=== PATIENT | female | born 1975 | race Two or more races ===

== ENCOUNTER 2022-08-26 20:21 | Emergency (ER) | payer MEDICAID, OTHER ==
[~2022-08-26] VITALS: Ht 157.5 cm; Wt 87.2 kg
[2022-08-26 20:59] LABS: Basophils # (auto) 0 10 ^3/uL (0-0.2); Basophils % (auto) 0.3 % (0.0-2.0); Eosinophils # (auto) 0 10 ^3/uL (0-0.8); Hemoglobin 8.5 g/dL (12.2-16.2); Mean Corpuscular Hemoglobin 19.8 pg (28.0-32.0); Monocytes # (auto) 0.7 10 ^3/uL (0-1.3); Neutrophils # (auto) 6.4 10 ^3/uL (1.6-8.6); Nucleated Red Blood Cells % 0.1 %
[2022-08-26 21:01] LABS: Eosinophils % (auto) 0.5 % (0.0-7.0); Hematocrit 28.3 % (36.0-46.0); Lymphocytes # (auto) 1.5 10 ^3/uL (0.4-5.4); Mean Corpuscular Hgb Conc. 30.1 g/dL (32.0-36.0); Mean Corpuscular Volume 65.8 fL (80.0-100.0); Monocytes % (auto) 7.8 % (0.0-12.0); Neutrophils % (auto) 74.4 % (37.0-80.0); White Blood Cell 8.7 10^3/uL (4.4-10.8)
[2022-08-26 21:14] LABS: INR 1.03 (0.9-1.15); Partial Thromboplastin Time 22.5 sec (24.6-33.4)
[2022-08-26 21:15] LABS: Albumin 3.3 g/dL (3.4-5.0); BUN/Creatinine Ratio 8.8; Calcium 8.9 mg/dL (8.5-10.1); Magnesium 2.1 mg/dL (1.6-2.6)
[2022-08-26 21:18] LABS: Bilirubin, Total 0.5 mg/dL (0.2-1.0)
[2022-08-26 21:44] LABS: Red Cell Distribution Width 22.1 % (11.8-14.3)
[2022-08-26] MEDS ORDERED: DexAMETHasone 4 MG TAB PO ONE (21:45)
[2022-08-26] MEDS ORDERED: ALBUTEROL SULF 2.5 MG/0.5ML(0.5%) NEB SOLN NEB ONE (21:45)
[2022-08-26] MEDS ORDERED: BUDESONIDE (INHALATION) 0.5 MG/2 ML NEB NEB ONE (21:45)
[2022-08-26] MEDS ORDERED: ASPirin 325 MG TAB PO ONE (21:45)
[2022-08-26] MEDS ORDERED: ALBUTEROL MEDNEB 2.5 mg/3ml NEB ONE (21:53)
[2022-08-26] MEDS ORDERED: POTASSIUM CHL 20 Meq TABLET PO ONE (22:00)
[2022-08-27] MEDS ORDERED: IOHEXOL 350 MG/ML 100ML IJ ONE ×2 (02:37→04:04)
[2022-08-27 06:20] VITALS: BP 115/73
== END 2022-08-27 06:26 | disposition home or self-care (01) ==
LOC: ER 20:29
DX: R07.89 Other chest pain (principal); R06.02 Shortness of breath; I10 Essential (primary) hypertension; F17.210 Nicotine dependence, cigarettes, uncomplicated; Z90.49 Acquired absence of other specified parts of digestive tract
CPT/HCPCS: 36415; 71045; 71275; 80053; 83735; 83880; 84484; 85025; 85379; 85610; 85730; 93005; 94640; 99285; J8540; Q9967

== ENCOUNTER 2025-05-17 15:16 | Inpatient (IN) | payer BC, OTHER ==
[~2025-05-17] VITALS: Ht 165.1 cm; Wt 93.3 kg
[2025-05-17 15:30] VITALS: PULSE 58; RESP 23; O2SAT 100
[2025-05-17] MEDS: LORazepam 2MG/ML-1ML VIAL ONE (15:35)
--- NOTE | 2025-05-17 15:52 | ED.PDOC ---
History of Present Illness HPI Comments This is a 49-year-old female who comes in with chief complaint of possible seizures today. The patient was at work when she had three seizures at work. They were described as tonic-clonic in nature and lasted less than 1 minute each. 911 was called and when the paramedics arrived, the patient had another seizure lasting approximately 1 minute. That is seizure was also tonic-clonic in nature. The patient takes Keppra 3 times a day and states that her last dose of Keppra was at approximately 12:30 p.m. today. Upon arrival to the emergency department's, the patient had another seizure which lasted less than 1 minute. The patient is somewhat altered but now able to somewhat answer questions. The patient states that she does have a history of seizures. Time Seen by MD: 15:39 Primary Care Provider: SUNI Reviewed Notes: Nurses Notes, Velocity Shooter Notes, Medications Allergies: Coded Allergies: NO KNOWN ALLERGIES (Unverified , 11/12/12) Information Source: Emergency Med Personnel Mode of Arrival: EMS Severity: Moderate Timing: Minutes Duration: Intermittent Prehospital treatment: 12 Lead EKG, Aerodynamicist, IVF Associated signs and symptoms Tonic-clonic seizure activity Past Medical History PAST MEDICAL HISTORY: HTN, Seizures, TIA Past Medical History (Other): SLE Surgical History: BTL, Cholecystectomy Surgical History (Other): Right knee surgery STORES ASSISTANT History: No Pertinent STORES ASSISTANT History Family History Family History: Reviewed,noncontributory to illness Social History Smoker: Cigarettes, Less Than 1 Pack/Day Alcohol: Heavy Drugs: Marijuana Lives In: Home Constitutional: denies: chills, diaphoresis, fatigue, fever, malaise, sweats, weakness, others EENTM: denies: blurred vision, double vision, ear bleeding, ear discharge, ear drainage, ear pain, ear ringing, eye pain, eye redness, hearing loss, mouth pain, mouth swelling, nasal discharge, nose bleeding, nose congestion, nose pain, photophobia, tearing, throat pain, throat swelling, voice changes, others Respiratory: denies: cough, hemoptysis, orthopnea, SOB at rest, shortness of breath, SOB with excertion, stridor, wheezing, others Cardiovascular: denies: chest pain, dizzy spells, diaphoresis, Dyspnea on exertion, edema, irregular heart beat, left arm pain, lightheadedness, palpi tations, PND, syncope, others Gastrointestinal: denies: abdomen distended, abdominal pain, blood streaked bowels, constipated, diarrhea, dysphagia, difficulty swallowing, hematemesis, melena, nausea, poor appetite, poor fluid intake, rectal bleeding, rectal pain, vomiting, others Genitourinary: denies: abnormal vagina bleeding, burning, dyspareunia, dysuria, flank pain, frequency, hematuria, incontinence, pain, , vagina discharge, urgency, others Neurological: reports: seizure; denies: dizziness, fainting, headache, left sided numbness, left sided weakness, numbness, paresthesia, pre-existing deficit, right sided numbness, right sided weakness, speech problems, tingling, tremors, weakness, others Musculoskeletal: denies: back pain, gout, joint pain, joint swelling, muscle pain, muscle stiffness, neck pain, others Integumetry: denies: bruises, change in color, change in hair/nails, dryness, laceration, lesions, lumps, rash, wounds, others Allergic/Immunocompromised: denies: Difficulty Healing, Frequent Infections, Hives, Itching, others Hematologic/Lymphatic: denies: anemia, blood clots, easy bleeding, easy bruising, swollen glands, others Endocrine: denies: excessive hunger, excessive sweating, excessive thirst, excessive urination, flushing, intolerance to cold, intolerance to heat, unexplained weight gain, unexplained weight loss, others Psychiatric: denies: anxiety, bipolar disorder, depression, hopeless, panic disorder, schizophrenia, sleepless, suicidal, others Physical Exam General Appearance: Moderate Distress HEENT: Normal ENT Inspection, Pharynx Normal, TMs Normal Neck: Full Range of Motion, Non-Tender, Normal, Normal Inspection Respiratory: Chest Non-Tender, Lungs Clear, No Accessory Muscle Use, No Respiratory Distress, Normal Breath Sounds Cardiovascular: No Edema, No JVD, No Murmur, No Gallop, Normal Peripheral Pulses, Regular Rate/Rhythm Breast Exam: Deferred Gastrointestinal: No Organomegaly, Non Tender, No Pulsatile Mass, Normal Bowel Sounds, Soft Genitalia: Deferred Pelvic: Deferred Rectal: Deferred Extremities: No calf tenderness, Normal capillary refill, Normal inspection, Normal range of motion, Non-tender, No pedal edema Musculoskeletal : Apperance: Normal Neurologic: phytochemistry professor II-XII nml as Tested, Motor Weakness, No Sensory Deficits, Other (Altered mental status because the patient is postictal at this time) Cerebellar Function: Normal Reflexes: Normal Skin: Dry, Normal Color, Warm Lymphatic: No Adenopathy Was a procedure done? Was a procedure done?: No Differential Dx Considerations may include: Status epilepticus, generalized weakness, electrolyte imbalance, UTI X-Ray, Labs, Meds, VS Vital Signs Date Time Temp Pulse Resp B/P (MAP) Pulse Ox O2 Delivery O2 Flow Rate FiO2 05/17/25 15:21 99.4 76 20 143/82 100 99.4 Lab Test 05/17/25 16:12 Range/Units White Blood Count 4.5 4.4-10.8 10^3/uL Red Blood Count 5.22 H 4.0-5.20 10^6/uL Hemoglobin 12.6 12.2-16.2 g/dL Hematocrit 39.6 36.0-46.0 % Mean Corpuscular Volume 75.8 L 80.0-100.0 fL Mean Corpuscular Hemoglobin 24.1 L 28.0-32.0 pg Mean Corpuscular Hemoglobin Concent 31.9 L 32.0-36.0 g/dL Red Cell Distribution Width 22.1 H 11.8-14.3 % Platelet Count 210 140-450 10^3/uL Mean Platelet Volume 8.5 6.9-10.8 fL Neutrophils (%) (Auto) 67.0 37.0-80.0 % Lymphocytes (%) (Auto) 24.2 10.0-50.0 % Monocytes (%) (Auto) 6.4 0.0-12.0 % Eosinophils (%) (Auto) 1.6 0.0-7.0 % Basophils (%) (Auto) 0.8 0.0-2.0 % Neutrophils # (Auto) 3.0 1.6-8.6 10 ^3/uL Lymphocytes # (Auto) 1.1 0.4-5.4 10 ^3/uL Monocytes # (Auto) 0.3 0-1.3 10 ^3/uL Eosinophils # (Auto) 0.1 0-0.8 10 ^3/uL Basophils # (Auto) 0 0-0.2 10 ^3/uL Nucleated Red Blood Cells 0.1 % Sodium Level 145 136-145 mmol/L Potassium Level 3.5 3.5-5.1 mmol/L Chloride Level 108 H 98-107 mmol/L Carbon Dioxide Level 25 20-31 mmol/L Anion Gap 12 5-15 Blood Urea Nitrogen 9 9-23 mg/dL Creatinine 0.93 0.550-1.02 mg/dL Glomerular Filtration Rate Calc 75 >90 mL/min BUN/Creatinine Ratio 9.7 L 10.0-20.0 Serum Glucose 78 74-106 mg/dL Calcium Level 9.2 8.7-10.4 mg/dL Plasma/Serum Blood Alcohol < 3.0 <10 mg/dL Current Medications Medications (Trade) Dose Ordered Sig/Reggie Route Start Time Stop Time Status Last Admin Levetiracetam 100 ml @ 400 mls/hr ONCE ONCE IV 05/17/25 15:45 05/17/25 15:59 DC 05/17/25 16:03 IV Hep-Lock was established. The patient was given Ativan 2 mg IV push because of the seizure activity We did order Keppra 1000 mg IV piggyback for this patient The patient had another seizure here in the emergency department's. The patient is being admitted to the hospitalist. Seizure precautions were placed on this patient The alcohol level is negative The patient's CBC and chemistry panel are within normal limits The patient is being admitted Images Reviewed?: Images reviewed and evaluated by me Time of 1ST Reevaluation: 15:51 Reevaluation 1ST: Unchanged Patient Education/Counseling: Diagnosis, Treatment, Prognosis Family Education/Counseling: No Family Present SEPSIS Sepsis Screen Physician Orders Pulse Oximetry (05/17/25 15:39) Blood Pressure (05/17/25 15:39) Drug Screen (05/17/25 15:39) Heplock Iv (05/17/25 15:39) Seizure Precautions (05/17/25 15:39) Aerodynamicist (05/17/25 15:39) Electrocardigram (05/17/25 15:39) Vital Signs Date Time Temp Pulse Resp B/P (MAP) Pulse Ox O2 Delivery O2 Flow Rate FiO2 05/17/25 15:21 99.4 76 20 143/82 100 99.4 Laboratory Tests Test 05/17/25 16:12 White Blood Count 4.5 10^3/uL (4.4-10.8) Medications Medications Dose Ordered Sig/Reggie Route Start Time Stop Time Status Last Admin Dose Admin Levetiracetam 100 ml @ 400 mls/hr ONCE ONCE IV 05/17/25 15:45 05/17/25 15:59 DC 05/17/25 16:03 Departure 1 Departure Time of Disposition: 18:48 Impression: Primary Impression: Status epilepticus Disposition: ADMITTED INPATIENT Admit to: Tele Condition: Fair Critical Care Note Critical Care Time?: Yes (45 min-critical care time only) Stability Stability form required: Yes Unstable for transfer: Telemetry monitoring (Telemetry monitoring required), ED Physician Assesment (Clinical assesment) Heart Score Heart Score: Heart Score Response (Comments) Value History N/A 0 EKG N/A 0 Age N/A 0 Risk Factors N/A 0 Troponin N/A 0 Total 0 DYLAN MAYFIELD MD May 17, 2025 15:52
[2025-05-17] MEDS: levETIRAcetam 1000 mg/100ml 100 ML IV ONE (16:03)
[2025-05-17 16:22] LABS: Hemoglobin 12.6 g/dL (12.2-16.2); Mean Corpuscular Hemoglobin 24.1 pg (28.0-32.0)
[2025-05-17 16:25] LABS: Hematocrit 39.6 % (36.0-46.0); Mean Corpuscular Volume 75.8 fL (80.0-100.0); Nucleated Red Blood Cells % 0.1 %
[2025-05-17 16:30] LABS: Sodium 145 mmol/L (136-145)
[2025-05-17 16:31] LABS: Anion Gap 12 (5-15); Carbon Dioxide 25 mmol/L (20-31)
[2025-05-17 16:32] LABS: Calcium 9.2 mg/dL (8.7-10.4)
[2025-05-17 16:34] LABS: Chloride 108 mmol/L (98-107); Potassium 3.5 mmol/L (3.5-5.1)
[2025-05-17 16:37] LABS: BUN/Creatinine Ratio 9.7 (10.0-20.0); Glucose 78 mg/dL (74-106)
[2025-05-17 16:39] LABS: Blood Urea Nitrogen 9 mg/dL (9-23)
[2025-05-17] MEDS ORDERED: ONDANSETRON HCL 4 MG/2 ML VIAL IV PRN (20:30)
--- NOTE | 2025-05-17 20:46 | DVH ---
EXAM: CT HEAD WITHOUT CONTRAST INDICATION: Seizures TECHNIQUE: CT of the head without intravenous contrast. Radiation Dose : 1. Head: CT Dose: CTDI volume is 58.81 mGy. Dose-length product is 1.71 mGy*cm The dose indicators for CT are the volume Computed Tomography (CT) Dose Index (CTDIvol) and the Dose Length Product (DLP), and are measured in units of mGy and mGy-cm, respectively. These indicators are not patient dose, but values generated from the CT scanner acquisition factors. The report includes radiation exposure data for exposures received during this examination. COMPARISON: None FINDINGS: The ventricles, cisterns, and sulci appear age-appropriate. There is no evidence for acute territor ial infarct, hemorrhage, or mass effect. A nonspecific calcification is seen within the periphery of the right frontoparietal lobe. There is bilateral basal ganglia calcifications/mineralization. The orbits are normal. The visualized paranasal sinuses and mastoid air cells are clear. The soft t issues and osseous structures appear within normal limits. IMPRESSION: 1. No acute territorial infarct, intracranial hemorrhage, or mass effect. 2. If clinical symptoms persist, MRI may be beneficial in further evaluation. Radiation optimization: All CT scans at this facility use at least one of these dose optimization ty hniques: automated exposure control mA and/or kV adjustment per patient size (includes targeted exam s where dose is matched to clinical indication) or iterative reconstruction.
[2025-05-17] MEDS: levETIRAcetam 500 MG TAB PO SCH (21:32)
[2025-05-17 21:39] VITALS: PULSE 78; RESP 18; O2SAT 97
[2025-05-17] MEDS ORDERED: TEMAZEPAM 15 MG CAP PO PRN (22:00)
[2025-05-17 23:30] VITALS: BP 105/69; PULSE 58; RESP 15
--- NOTE | 2025-05-18 01:45 | DVHHP2 ---
History of Present Illness Reason for Visit: Seizure activity History of Present Illness 49-year-old female presents for evaluation of seizure activity. Patient is alert oriented. She reports having three seizures at work. She describes them as tonic-clonic lasting less than 30 seconds.. She reports her last seizure episode being three weeks ago. She reports being compliant with her antiseizure medications. Denies oral trauma or incontinence. No other acute complaints reported. Past Medical History Seizure, TIA, hypotension, lupus Past Surgical History Cholecystectomy, right knee surgery Family History Noncontributory Smoke: <1 pack per day ALCOHOL: heavy Drugs: Marijuana Lives: with Family Review of Systems Review of Systems Review of systems are currently negative otherwise addressed in HPI. Allergies: Coded Allergies: NO KNOWN ALLERGIES (Unverified , 11/12/12) Medications Current Medications Medications Dose Ordered Sig/Reggie Route Start Time Stop Time Status Last Admin Dose Admin Levetiracetam 500 mg BID PO 05/17/25 22:00 05/17/25 21:32 500 MG Lorazepam 1 mg Q5MINP PRN IV 05/17/25 20:30 Temazepam 15 mg QHSP PRN PO 05/17/25 22:00 Ondansetron HCl 4 mg Q4HP PRN IV 05/17/25 20:30 Acetaminophen 650 mg Q6HP PRN PO 05/17/25 20:30 Exam Vital Signs Vital Signs Date Time Temp Pulse Resp B/P (MAP) Pulse Ox O2 Delivery O2 Flow Rate FiO2 05/17/25 23:30 58 15 105/69 (81) 05/17/25 21:39 97 Nasal Cannula* 2 28 05/17/25 19:56 98.1 98.1 Exam Gen: 49-year-old female in mild distress Skin: Warm, dry, normal color and texture, no rash. HEENT: Normocephalic atraumatic, mucous membranes moist and pink. Neck: Cervical and supraclavicular nodes normal without enlargement, trachea is midline, thyroid gland is normal without masses. Pulmonary: Clear to auscultation and percussion bilaterally. Cardiac: Regular rate and rhythm. No murmur Abdomen: Soft, nontender, nondistended, bowel sounds present all 4 quadrants, no guarding, no rigidity, no organomegaly. Extremities: No cyanosis, clubbing, no edema Neuro: Cranial nerves II through XII grossly intact, normal affect and speech, no focal motor deficits. Labs/Xrays ORDERING PHYSICIAN: ANKIT GARCIA PROCEDURE(s): HWOCT - HEAD WITHOUT CONTRAST REASON: Seizures ORDER NUMBER(s): [id number], ACCESSION NUMBER(s): [id number] EXAM: CT HEAD WITHOUT CONTRAST INDICATION: Seizures TECHNIQUE: CT of the head without intravenous contrast. Radiation Dose : 1. Head: CT Dose: CTDI volume is 58.81 mGy. Dose-length product is 1.71 mGy*cm The dose indicators for CT are the volume Computed Tomography (CT) Dose Index (CTDIvol) and the Dose Length Product (DLP), and are measured in units of mGy and mGy-cm, respectively. These indicators are not patient dose, but values generated from the CT scanner acquisition factors. The report includes radiation exposure data for exposures received during this examination. COMPARISON: None FINDINGS: The ventricles, cisterns, and sulci appear age-appropriate. There is no alexandru dence for acute territorial infarct, hemorrhage, or mass effect. A nonspecific calcification is seen within the periphery of the right frontoparietal lobe. There is bilateral basal ganglia calcifications/mineralization. The orbits are normal. The visualized paranasal sinuses and mastoid air cells are clear. The soft tissues and osseous structures appear within normal limits. IMPRESSION: 1. No acute territorial infarct, intracranial hemorrhage, or mass effect. 2. If clinical symptoms persist, MRI may be beneficial in further evaluation. Radiation optimization: All CT scans at this facility use at least one of these dose optimization techniques: automated exposure control mA and/or kV adjustment per patient size (includes targeted exams where dose is matched to clinical indication) or iterative reconstruction. Labs Test 05/17/25 16:12 Range/Units White Blood Count 4.5 4.4-10.8 10^3/uL Red Blood Count 5.22 H 4.0-5.20 10^6/uL Hemoglobin 12.6 12.2-16.2 g/dL Hematocrit 39.6 36.0-46.0 % Mean Corpuscular Volume 75.8 L 80.0-100.0 fL Mean Corpuscular Hemoglobin 24.1 L 28.0-32.0 pg Mean Corpuscular Hemoglobin Concent 31.9 L 32.0-36.0 g/dL Red Cell Distribution Width 22.1 H 11.8-14.3 % Platelet Count 210 140-450 10^3/uL Mean Platelet Volume 8.5 6.9-10.8 fL Neutrophils (%) (Auto) 67.0 37.0-80.0 % Lymphocytes (%) (Auto) 24.2 10.0-50.0 % Monocytes (%) (Auto) 6.4 0.0-12.0 % Eosinophils (%) (Auto) 1.6 0.0-7.0 % Basophils (%) (Auto) 0.8 0.0-2.0 % Neutrophils # (Auto) 3.0 1.6-8.6 10 ^3/uL Lymphocytes # (Auto) 1.1 0.4-5.4 10 ^3/uL Monocytes # (Auto) 0.3 0-1.3 10 ^3/uL Eosinophils # (Auto) 0.1 0-0.8 10 ^3/uL Basophils # (Auto) 0 0-0.2 10 ^3/uL Nucleated Red Blood Cells 0.1 % Sodium Level 145 136-145 mmol/L Potassium Level 3.5 3.5-5.1 mmol/L Chloride Level 108 H 98-107 mmol/L Carbon Dioxide Level 25 20-31 mmol/L Anion Gap 12 5-15 Blood Urea Nitrogen 9 9-23 mg/dL Creatinine 0.93 0.550-1.02 mg/dL Glomerular Filtration Rate Calc 75 >90 mL/min BUN/Creatinine Ratio 9.7 L 10.0-20.0 Serum Glucose 78 74-106 mg/dL Calcium Level 9.2 8.7-10.4 mg/dL Plasma/Serum Blood Alcohol < 3.0 <10 mg/dL SEPSIS Sepsis Screen Date sepsis recognized/suspect: May 17, 2025 Time Sepsis recognized/suspect: 2140 Recent Procedure: No On Antibiotic Therapy: No Respiratory Rate >20: No Heart Rate >90: No Temp<36 C (96.8 F) or >38.3 C: No SBP <90 or MAP <65 mmHG: No New Acute Mental Status Change: No Is the patient on CPAP, BIPAP,: No Physician Orders Admit (05/17/25 19:53) Head Without Contrast (05/17/25 19:53) Levetiracetam Tablet (Keppra Tablet) (05/17/25 22:00) Regular Diet (05/18/25 Breakfast) * Neurology Consult (05/17/25 20:27) Seizure Precautions In Place (05/17/25 20:27) Lorazepam 2mg/Ml Inj (Ativan Inj) (05/17/25 20:30) Basic Metabolic Panel (05/18/25 04:00) Temazepam (Restoril) (05/17/25 22:00) Ondansetron Hcl (Zofran) (05/17/25 20:30) Condition: Stable (05/17/25 20:27) Acetaminophen Tablet (Tylenol Tablet) (05/17/25 20:30) Bedrest With Bathroom Privileg (05/17/25 20:27) Vital Signs Date Time Temp Pulse Resp B/P (MAP) Pulse Ox O2 Delivery O2 Flow Rate FiO2 05/17/25 23:30 58 15 105/69 (81) 05/17/25 21:39 78 18 97 Nasal Cannula* 2 28 05/17/25 20:00 52 05/17/25 19:56 98.1 70 18 120/78 (92) 97 98.1 Laboratory Tests Test 05/17/25 16:12 White Blood Count 4.5 10^3/uL (4.4-10.8) Medications Medications Dose Ordered Sig/Reggie Route Start Time Stop Time Status Last Admin Dose Admin Levetiracetam 100 ml @ 400 mls/hr ONCE ONCE IV 05/17/25 15:45 05/17/25 15:59 DC 05/17/25 16:03 400 MLS/HR Levetiracetam 500 mg BID PO 05/17/25 22:00 05/17/25 21:32 500 MG Assessment/Plan Assessment/Plan Assessment Breakthrough seizure Hypotension Plan Admit the patient to [facility] to the hospitalist Seizure precautions Nephrology consultation Continue treatment per orders. Plan discussed with: Patient My Orders Orders - ANKIT GARCIA Procedure Category Date Status Time Admit ADMIT 05/17/25 Transmitted 19:[address] 05/17/25 Resulted 19:53 Levetiracetam Tablet PHA 05/17/25 In Process (Keppra Tablet) 22:00 Regular Diet DIET 05/18/25 Transmitted Breakfast * Neurology Consult CONS 05/17/25 Transmitted 20:27 Seizure Precautions DAMON 05/17/[address] 20:27 Lorazepam 2mg/Ml Inj PHA 05/17/25 In Process (Ativan Inj) 20:30 Basic Metabolic Panel LAB 05/18/25 Logged 04:00 Temazepam (Restoril) PHA 05/17/25 In Process 22:00 Ondansetron Hcl PHA 05/17/25 In Process (Zofran) 20:30 Condition: Stable DAMON 05/17/25 In Process 20:27 Acetaminophen Tablet PHA 05/17/25 In Process (Tylenol Tablet) 20:30 Bedrest With Bathroom DAMON 05/17/25 In Process Privileg 20:27 Date of Service: May 17, 2025 Billing Provider: ANKIT GARCIA Common Visit Codes: [id number] INP/OBS CARE (HIGH) ANKIT GARCIA May 18, 2025 01:45
[2025-05-18] MEDS ORDERED: UPAD15TA PO (03:57)
[2025-05-18] MEDS ORDERED: HYDR25TA4 PO (03:57)
[2025-05-18] MEDS ORDERED: LEVE100012 PO (03:57)
[2025-05-18] MEDS ORDERED: LEVO112T4 PO (03:57)
[2025-05-18 04:52] LABS: Sodium 143 mmol/L (136-145)
[2025-05-18 04:53] LABS: Anion Gap 11 (5-15); Calcium 9.2 mg/dL (8.7-10.4); Carbon Dioxide 24 mmol/L (20-31)
[2025-05-18 04:54] LABS: Chloride 108 mmol/L (98-107); Potassium 3.4 mmol/L (3.5-5.1)
[2025-05-18 04:58] LABS: BUN/Creatinine Ratio 13.6 (10.0-20.0); Blood Urea Nitrogen 9 mg/dL (9-23); Glucose 75 mg/dL (74-106)
[2025-05-18 05:00] VITALS: BP 116/76; PULSE 65; RESP 14
[2025-05-18 08:54] VITALS: BP_SYST 106; BP_SYST 130; BP_DIAS 72; PULSE 102; PULSE 56; RESP 18; RESP 20; TEMP 97.9; TEMP 98.4; O2SAT 94; O2SAT 98
[2025-05-18] MEDS: levETIRAcetam 500 MG TAB PO SCH (09:54)
[2025-05-18] MEDS: LORazepam 2MG/ML-1ML VIAL IV PRN (11:16)
[2025-05-18 11:22] VITALS: BP 122/79; PULSE 66; RESP 16; O2SAT 96
[2025-05-18 13:45] LABS: Alanine Aminotransferase 34.0 U/L (7-40); Albumin 4.1 g/dL (3.2-4.8); Alkaline Phosphatase 81.0 U/L (46-116); Bilirubin, Total 0.5 mg/dL (0.2-1.0); Magnesium 2.3 mg/dL (1.6-2.6); Total Protein 6.8 g/dL (5.7-8.2)
[2025-05-18] MEDS: POTASSIUM EFFERVESENT TAB 25 MEQ PO ONE (13:50)
[2025-05-18] MEDS: ACETAMINOPHEN 325 MG TAB PO PRN (13:56)
[2025-05-18 14:08] LABS: Bilirubin, Direct 0.1 mg/dL (<0.3)
--- NOTE | 2025-05-18 15:09 | DVHPN2 ---
Reviewed: H&P Changes from previous H/P or p: No Changes General: Per HPI Objective Vitals Vital Signs Date Time Temp Pulse Resp B/P (MAP) Pulse Ox O2 Delivery O2 Flow Rate FiO2 05/18/25 11:22 66 16 122/79 (93) 96 05/18/25 08:54 98.4 98.4 05/17/25 21:39 Nasal Cannula* 2 28 Exam Gen: 49-year-old female in mild distress Skin: Warm, dry, normal color and texture, no rash. HEENT: Normocephalic atraumatic, mucous membranes moist and pink. Neck: Cervical and supraclavicular nodes normal without enlargement, trachea is midline, thyroid gland is normal without masses. Pulmonary: Clear to auscultation and percussion bilaterally. Cardiac: Regular rate and rhythm. No murmur Abdomen: Soft, nontender, nondistended, bowel sounds present all 4 quadrants, no guarding, no rigidity, no organomegaly. Extremities: No cyanosis, clubbing, no edema Neuro: Cranial nerves II through XII grossly intact, normal affect and speech, left facial deficits from prior stroke (residual deficits) Medications Current Medications Medications Dose Ordered Sig/Reggie Route Start Time Stop Time Status Last Admin Dose Admin Lorazepam 1 mg Q5MINP PRN IV 05/17/25 20:30 05/18/25 11:16 1 MG Ondansetron HCl 4 mg Q4HP PRN IV 05/17/25 20:30 Acetaminophen 650 mg Q6HP PRN PO 05/17/25 20:30 05/18/25 13:56 650 MG Valproate Sodium 250 mg/Sodium Chloride 52.5 ml @ 52.5 mls/hr BID IV 05/18/25 13:30 Levetiracetam 100 ml @ 400 mls/hr BID IV 05/18/25 22:00 Laboratory Results Laboratory Tests 05/17/25 16:12 05/18/25 03:24 Chemistry Test 05/17/25 16:12 05/18/25 03:24 05/18/25 13:06 Calcium Level 9.2 mg/dL (8.7-10.4) 9.2 mg/dL (8.7-10.4) Albumin 4.1 g/dL (3.2-4.8) Magnesium Level 2.3 mg/dL (1.6-2.6) Total Protein 6.8 g/dL (5.7-8.2) LFT Test 05/18/25 13:06 Alanine Aminotransferase (ALT) 34 U/L (7-40) Alkaline Phosphatase 81 U/L (46-116) Aspartate Amino Transferase (AST) 38 U/L (13-40) Direct Bilirubin 0.1 mg/dL (<0.3) Total Bilirubin 0.5 mg/dL (0.2-1.0) Labs and/or images reviewed: Labs reviewed by me, Image(s) reviewed by me Assessment/Plan Assessment/Plan 49-year-old female presents for evaluation of seizure activity. Patient is alert oriented. She reports having three seizures at work. She describes them as tonic-clonic lasting less than 30 seconds.. She reports her last seizure episode being three weeks ago. She reports being compliant with her antiseizure medications. Denies oral trauma or incontinence. No other acute complaints reported. Past Medical History Seizure, TIA, hypotension, lupus 05/18: Patient had 2 episodes of breakthrough seizures today lasting maximum 10 minutes, with complete returned to consciousness and alert. Pulsatile states are not very long. We will convert Keppra and to IV 1000 mg IV b.i.d., add valproate 250 IV b.i.d., pending neurology eval and follow up. For diet keep clear liquid diet only. Aspiration precautions. Diagnosis: Breakthrough seizures History of epilepsy History TIA History CVA (left facial palsy residual) Hypotension, history of Lupus SLE Plan: IV Keppra 1000 mg IV b.i.d. Valproate 250 mg IV b.i.d. Aspiration precautions Prn Ativan 1 mg Q 5 minutes for breakthrough seizures Clear liquid diet Tele Full code Plan discussed with: Patient My Orders Orders - ORTIZ ZAVALA MD Procedure Category Date Status Time Valproate Inj PHA 05/18/25 In Process (Depacon) 13:30 Levetiracetam 1000 PHA 05/18/25 In Process Mg/100ml (Levetiracet 22:00 Date of Service: May 18, 2025 Billing Provider: ORTIZ ZAVALA MD Common Visit Codes: [id number] INP/OBS CARE(HIGH) ORTIZ ZAVALA MD May 18, 2025 15:09
[2025-05-18 15:56] LABS: Urine Amorphous Crystal FEW /hpf (None Seen); Urine Protein, UAD Negative (Negative)
[2025-05-18 16:02] LABS: Amphetamine Screen, Urine Neg (NEGATIVE); Barbiturate Scree,Urine Neg (NEGATIVE); Benzodiazephine Screen, Urine Neg (NEGATIVE); Cannabinoid Screen, Urine Neg (NEGATIVE); Cocaine Screen, Urine Neg (NEGATIVE); Opiate Scree,Urine Neg (NEGATIVE); Phencyclidine Screen, Urine Neg (NEGATIVE)
[2025-05-18] MEDS: VALPROATE INJ 250 MG in SODIUM CHL 0.9% 50 ML IV SCH (17:13)
--- NOTE | 2025-05-18 17:54 | DVHCONRES ---
Date Seen: May 18, 2025 Resident Creating Document: JAKE MCKEON RESIDENT Referring Physician Michel Burris Reason for Consultation seizure History of Present Illness Neurology consultation Ms. 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 Patient mentioned that yesterday around 2-3 p.m. when she was sitting in her office, she had blurriness of vision and headache and the next memory was waking up sitting in the same chair with her co-worker holding hand confused, he did not read recognize her co-worker and place, time till sometime after waking up. As per , he got a call from the co-worker that patient had three episode of seizures and they had to call 911. The coworkers saw jerky movement with drooling of saliva but no tongue biting and no urinary and fecal incontinence. They also mentioned confusion after the episode of seizures to the . On arriving to the ED, patient had two more episodes of seizures. During the hospital stay, today morning patient had two episodes more with 1st episode noted by the around 17 seconds where jerky movement was noted and it resolved spontaneously, her eyes were closed during the seizure. Patient had another episode of seizure noted by the nurse that lasted for around 15 seconds and 1 mg of Ativan was given. As per the nurse, patient had jerky movement and had postictal confusion. As per the patient, her seizures disorder started in 1992, and her related the seizure he witnessed was typical. The seizure was five at the beginning, but from she only had seizure wants 2-3 years. she has been taking her medication every day once in the morning and once post lunch. Before this episode also patient took her medication i.e Keppra 1000 mg b.i.d. She has never had associated oral trauma or incontinence during the seizure attacks Patient received a flu shot on Thursday. She also mentioned that she has tingling and numbness sensation which she attributed to vitamin B12 deficiency for which she was getting monthly shots but for last three weeks she is getting daily shots of vitamin B12 injection. Patient does not see a neurologist and her PCPs Dr. Hyman who manages her epilepsy. Patient denied any recent history of infection, trauma, drug use. Patient attributes stress as a trigger to her seizure episode. 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 Stroke four years ago TIA two years ago SLE Epilepsy Denies history of anxiety and depression Past surgical history No recent surgery Family history No history of seizures or any neurological condition Social history Patient used to smoke heavily but quit few years ago Patient used to drink heavily but quit few years ago Patient used to consume marijuana but quit few years ago Medication history Rinvoq Levothyroxine Leflunomide Keppra Aspirin Family History: FH: rheumatoid arthritis G8 MOTHER Hypertension G8 MOTHER G8 FATHER Psoriasis G8 FATHER Allergies: Coded Allergies: Ceftriaxone (Verified Allergy, Mild, 05/18/25) Home Meds Reported Medications Leflunomide (Arava) 20 Mg Tab, 100 MG PO DAILY, TAB 05/19/25 Hydrochlorothiazide (Hydrochlorothiazide) 25 Mg Tab, PO DAILY for 30 Days, MG 05/18/25 Upadacitinib (Rinvoq) 15 Mg Tab, 15 MG PO DAILY, TAB 05/18/25 Levetiracetam (Keppra) 1,000 Mg Tab, 1 TAB PO BID, #60 TAB 5 Refills 05/18/25 Levothyroxine Sodium (Levothyroxine Sodium) 112 Mcg Tab, 112 MCG PO QAM for 30 Days, MCG 05/18/25 Current Medications Current Medications Medications (Trade) Dose Ordered Sig/Reggie Route PRN Reason Start Time Stop Time Status Last Admin Levetiracetam (Keppra Tablet) 500 mg BID PO 05/17/25 22:00 05/18/25 01:43 DC 05/17/25 21:32 Lorazepam (Ativan Inj) 1 mg Q5MINP PRN IV SEIZURES 05/17/25 20:30 05/18/25 11:16 Temazepam (Restoril) 15 mg QHSP PRN PO FOR INSOMNIA 05/17/25 22:00 05/18/25 13:31 DC Ondansetron HCl (Zofran) 4 mg Q4HP PRN IV NAUSEA / VOMITING 05/17/25 20:30 Acetaminophen (Tylenol Tablet) 650 mg Q6HP PRN PO PAIN SCALE 1-3 OR TEMP>100.4 05/17/25 20:30 05/18/25 13:56 Levetiracetam (Keppra Tablet) 1,000 mg BID PO 05/18/25 10:00 05/18/25 13:31 DC 05/18/25 09:54 Valproate Sodium 250 mg/Sodium Chloride 52.5 ml @ 52.5 mls/hr BID IV 05/18/25 13:30 05/18/25 17:13 Levetiracetam 100 ml @ 400 mls/hr BID IV 05/18/25 22:00 Review of Systems As described in the HPI Vital Signs Vital Signs Date Time Temp Pulse Resp B/P (MAP) Pulse Ox O2 Delivery O2 Flow Rate FiO2 05/18/25 11:22 66 16 122/79 (93) 96 05/18/25 08:54 98.4 98.4 05/17/25 21:39 Nasal Cannula* 2 28 Physical Exam Examination General Appearance: Alert, Oriented X3, Cooperative, No acute distress HEENT: EOMI Respiratory: Clear to auscultation, Normal air movement Cardiovascular: Regular rate, Normal S1, Normal S2 Abdominal: Normal bowel sounds Extremities: No cyanosis, No edema, Normal pulses, No tenderness/swelling Skin: No rashes, No breakdown Neuro: Cranial nerve examination Grossly intact 3-12 Motor examination Upper extremity limbs Normal power, tone Lower extremity limbs Normal power, tone Sensory examination Grossly intact Reflexes Not assess Cognitive examination Grossly intact, patient is alert and oriented times four, serial calculations done Gait Not assessed Speech Normal Cerebellar exam Not assessed Labs/Diagnostic Data Labs Test 05/18/25 15:27 05/18/25 13:06 05/18/25 03:24 05/17/25 16:12 Range/Units Urine Color Colorless Yellow Urine Clarity Turbid H Clear Urine pH 7.0 5.0-9.0 Urine Specific [place] 1.006 1.001-1.035 Urine Protein Negative Negative Urine Ketones Negative Negative Urine Blood Negative Negative /uL Urine Nitrite Negative Negative Urine Bilirubin Negative Negative Urine Urobilinogen Normal Negative mg/dL Urine Leukocyte Esterase 2+ Negative /uL Urine RBC 1 0 - 4 /hpf Urine Microscopic WBC 5 0-5 /HPF Urine Squamous Epithelial Cells Few <5 /hpf Urine Amorphous Crystals Few None Seen /hpf Urine Bacteria Few H None Seen /hpf Urine Mucus Few None Seen Urine Glucose Normal Normal mg/dL Urine Opiates Screen Neg NEGATIVE Urine Fentanyl Screen Neg NEGATIVE Urine Barbiturates Screen Neg NEGATIVE Urine Phencyclidine Screen Neg NEGATIVE Urine Amphetamines Screen Neg NEGATIVE Urine Benzodiazepines Screen Neg NEGATIVE Urine Cocaine Screen Neg NEGATIVE Urine Cannabinoids Screen Neg NEGATIVE Magnesium Level 2.3 1.6-2.6 mg/dL Total Bilirubin 0.5 0.2-1.0 mg/dL Direct Bilirubin 0.1 <0.3 mg/dL Aspartate Amino Transferase (AST) 38 13-40 U/L Alanine Aminotransferase (ALT) 34 7-40 U/L Alkaline Phosphatase 81 46-116 U/L Total Protein 6.8 5.7-8.2 g/dL Albumin 4.1 3.2-4.8 g/dL Sodium Level 143 136-145 mmol/L Potassium Level 3.4 L 3.5-5.1 mmol/L Chloride Level 108 H 98-107 mmol/L Carbon Dioxide Level 24 20-31 mmol/L Anion Gap 11 5-15 Blood Urea Nitrogen 9 9-23 mg/dL Creatinine 0.66 0.550-1.02 mg/dL Glomerular Filtration Rate Calc 107 >90 mL/min BUN/Creatinine Ratio 13.6 10.0-20.0 Serum Glucose 75 74-106 mg/dL Calcium Level 9.2 8.7-10.4 mg/dL White Blood Count 4.5 4.4-10.8 10^3/uL Red Blood Count 5.22 H 4.0-5.20 10^6/uL Hemoglobin 12.6 12.2-16.2 g/dL Hematocrit 39.6 36.0-46.0 % Mean Corpuscular Volume 75.8 L 80.0-100.0 fL Mean Corpuscular Hemoglobin 24.1 L 28.0-32.0 pg Mean Corpuscular Hemoglobin Concent 31.9 L 32.0-36.0 g/dL Red Cell Distribution Width 22.1 H 11.8-14.3 % Platelet Count 210 140-450 10^3/uL Mean Platelet Volume 8.5 6.9-10.8 fL Neutrophils (%) (Auto) 67.0 37.0-80.0 % Lymphocytes (%) (Auto) 24.2 10.0-50.0 % Monocytes (%) (Auto) 6.4 0.0-12.0 % Eosinophils (%) (Auto) 1.6 0.0-7.0 % Basophils (%) (Auto) 0.8 0.0-2.0 % Neutrophils # (Auto) 3.0 1.6-8.6 10 ^3/uL Lymphocytes # (Auto) 1.1 0.4-5.4 10 ^3/uL Monocytes # (Auto) 0.3 0-1.3 10 ^3/uL Eosinophils # (Auto) 0.1 0-0.8 10 ^3/uL Basophils # (Auto) 0 0-0.2 10 ^3/uL Nucleated Red Blood Cells 0.1 % Plasma/Serum Blood Alcohol < 3.0 <10 mg/dL Assessment Assessment # breakthrough seizures, possible with atypical features, ? stress-induced, ? Autoimmune considering history of lupus and patient is on immunotherapy CT head revealed No acute territorial infarct, intracranial hemorrhage, or mass effect. # lupus, on leflunomide and Rinvoq therapy # history of neurocysticercosis # history of stroke and TIA -on aspirin # History of polysubstance use Plan/Recommendation Plan EEG Seizure precaution Ativan p.r.n. for seizures Consider increase Keppra dose to 1500 mg b.i.d. Corrected electrolytes, potassium 25 mEq effervescent Monitor daily electrolytes Ordered hepatic panel Ordered Keppra levels Stress reduction Practice meditation, deep breathing, or yoga. Seek counseling or support groups as needed Continue aspirin and atorvastatin. Case discussion with Dr Bang. Plan discussed with: Patient, Other JAKE MCKEON RESIDENT May 18, 2025 17:54 DINA BANG MD May 18, 2025 21:17
[2025-05-18 18:39] VITALS: BP 100/65; PULSE 68; RESP 16; TEMP 98.4; O2SAT 93
[2025-05-18 20:00] VITALS: PULSE 85; RESP 18; O2SAT 98
[2025-05-18 21:00] VITALS: BP 95/52; PULSE 76; RESP 18; TEMP 98.1; O2SAT 95
[2025-05-18] MEDS: ATORVASTATIN 20 MG TAB PO SCH (23:29)
[2025-05-18] MEDS: levETIRAcetam 1000 mg/100ml 100 ML IV SCH (23:30)
[2025-05-19] VITALS (7 sets, daily range): BP systolic 104–130; BP diastolic 63–80; PULSE 60–72; RESP 17–18; TEMP 97.2–98.3; O2SAT 95–98
[2025-05-19] MEDS ORDERED: LEFL20TA PO (02:38)
[2025-05-19 05:38] LABS: Hematocrit 37.7 % (36.0-46.0); Hemoglobin 12.2 g/dL (12.2-16.2); Mean Corpuscular Hemoglobin 24.3 pg (28.0-32.0); Mean Corpuscular Volume 75.0 fL (80.0-100.0); Nucleated Red Blood Cells % 0.3 %
[2025-05-19 05:47] LABS: Chloride 108 mmol/L (98-107); Potassium 3.8 mmol/L (3.5-5.1); Sodium 142 mmol/L (136-145)
[2025-05-19 05:48] LABS: Anion Gap 11 (5-15); Calcium 9.3 mg/dL (8.7-10.4); Carbon Dioxide 23 mmol/L (20-31)
[2025-05-19 05:53] LABS: BUN/Creatinine Ratio 12.5 (10.0-20.0); Blood Urea Nitrogen 8 mg/dL (9-23); Glucose 82 mg/dL (74-106)
[2025-05-19] MEDS: VALPROATE INJ 250 MG in SODIUM CHL 0.9% 50 ML IV SCH (09:00)
--- NOTE | 2025-05-19 13:05 | DVHPN2 ---
Reviewed: H&P Changes from previous H/P or p: No Changes General: Per HPI Objective Vitals Vital Signs Date Time Temp Pulse Resp B/P (MAP) Pulse Ox O2 Delivery O2 Flow Rate FiO2 05/19/25 08:41 97.7 60 17 111/80 (90) 98 97.7 05/18/25 20:00 Room Air* 0 21 Intake/Output Intake and Output 05/19/25 07:00 Intake Total 0 ml Balance 0 ml Intake Oral 0 ml # Voids 5 Exam Gen: 49-year-old female in mild distress Skin: Warm, dry, normal color and texture, no rash. HEENT: Normocephalic atraumatic, mucous membranes moist and pink. Neck: Cervical and supraclavicular nodes normal without enlargement, trachea is midline, thyroid gland is normal without masses. Pulmonary: Clear to auscultation and percussion bilaterally. Cardiac: Regular rate and rhythm. No murmur Abdomen: Soft, nontender, nondistended, bowel sounds present all 4 quadrants, no guarding, no rigidity, no organomegaly. Extremities: No cyanosis, clubbing, no edema Neuro: Cranial nerves II through XII grossly intact, normal affect and speech, left facial deficits from prior stroke (residual deficits) Medications Current Medications Medications Dose Ordered Sig/Reggie Route Start Time Stop Time Status Last Admin Dose Admin Lorazepam 1 mg Q5MINP PRN IV 05/17/25 20:30 05/18/25 11:16 1 MG Ondansetron HCl 4 mg Q4HP PRN IV 05/17/25 20:30 Acetaminophen 650 mg Q6HP PRN PO 05/17/25 20:30 05/18/25 13:56 650 MG Aspirin 81 mg DAILY PO 05/19/25 10:00 05/19/25 09:58 81 MG Atorvastatin Calcium 40 mg HS PO 05/18/25 22:00 05/18/25 23:29 40 MG Levetiracetam 100 ml @ 400 mls/hr BID IV 05/19/25 22:00 Laboratory Results Laboratory Tests 05/19/25 04:50 Chemistry Test 05/18/25 13:06 05/19/25 04:50 Albumin 4.1 g/dL (3.2-4.8) Magnesium Level 2.3 mg/dL (1.6-2.6) Total Protein 6.8 g/dL (5.7-8.2) Calcium Level 9.3 mg/dL (8.7-10.4) LFT Test 05/18/25 13:06 Alanine Aminotransferase (ALT) 34 U/L (7-40) Alkaline Phosphatase 81 U/L (46-116) Aspartate Amino Transferase (AST) 38 U/L (13-40) Direct Bilirubin 0.1 mg/dL (<0.3) Total Bilirubin 0.5 mg/dL (0.2-1.0) Urinalysis Test 05/18/25 15:27 Urine Color Colorless (Yellow) Urine Clarity Turbid (Clear) H Urine pH 7.0 (5.0-9.0) Urine Specific [place] 1.006 (1.001-1.035) Urine Protein Negative (Negative) Urine Ketones Negative (Negative) Urine Blood Negative /uL (Negative) Urine Nitrite Negative (Negative) Urine Bilirubin Negative (Negative) Urine Urobilinogen Normal mg/dL (Negative) Urine Leukocyte Esterase 2+ /uL (Negative) Urine RBC 1 /hpf (0 - 4) Urine Microscopic WBC 5 /HPF (0-5) Urine Squamous Epithelial Cells Few /hpf (<5) Urine Amorphous Crystals Few /hpf (None Seen) Urine Bacteria Few /hpf (None Seen) H Urine Mucus Few (None Seen) Urine Glucose Normal mg/dL (Normal) Labs and/or images reviewed: Labs reviewed by me, Image(s) reviewed by me Assessment/Plan Assessment/Plan 49-year-old female presents for evaluation of seizure activity. Patient is alert oriented. She reports having three seizures at work. She describes them as tonic-clonic lasting less than 30 seconds.. She reports her last seizure episode being three weeks ago. She reports being compliant with her antiseizure medications. Denies oral trauma or incontinence. No other acute complaints reported. Past Medical History Seizure, TIA, hypotension, lupus 05/18: Patient had 2 episodes of breakthrough seizures today lasting maximum 10 minutes, with complete returned to consciousness and alert. Pulsatile states are not very long. We will convert Keppra and to IV 1000 mg IV b.i.d., add valproate 250 IV b.i.d., pending neurology eval and follow up. For diet keep clear liquid diet only. Aspiration precautions. 05/19: Patient continues to have seizures, has history of nurses cirrhosis, it was treated. Two seizures this morning, not requiring Ativan. Self resolved. Patient is not postictal A&O x4 pretty much away after the seizure and. Unclear if these are we will seizures. Neurology following. Stopped valproate. Continue Keppra higher dose 1.5 g Keppra IV b.i.d.. Urology following EEG today. We have to keep 1 more day to have 24 hour free of seizures. Diagnosis: Breakthrough seizures History of epilepsy History TIA History CVA (left facial palsy residual) Hypotension, history of Lupus SLE Plan: IV Keppra 1000 mg IV b.i.d. Valproate 250 mg IV b.i.d. Aspiration precautions Prn Ativan 1 mg Q 5 minutes for breakthrough seizures Clear liquid diet medsurg Full code Plan discussed with: Patient My Orders Orders - ORTIZ ZAVALA MD Procedure Category Date Status Time Levetiracetam 1500 PHA 05/19/25 In Process Mg/100ml (Levetiracet 22:00 Date of Service: May 19, 2025 Billing Provider: ORTIZ ZAVALA MD Common Visit Codes: [id number] INP/OBS CARE(HIGH) ORTIZ ZAVALA MD May 19, 2025 13:05
--- NOTE | 2025-05-19 13:53 | DVHPN2 ---
Consult Progress Note Date Seen: May 19, 2025 Subjective Other Systems: History of Present Illness Neurology consultation Ms. 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 Patient mentioned that yesterday around 2-3 p.m. when she was sitting in her office, she had blurriness of vision and headache and the next memory was waking up sitting in the same chair with her co-worker holding hand confused, he did not read recognize her co-worker and place, time till sometime after waking up. As per , he got a call from the co-worker that patient had three episode of seizures and they had to call 911. The coworkers saw jerky movement with drooling of saliva but no tongue biting and no urinary and fecal incontinence. They also mentioned confusion after the episode of seizures to the . On arriving to the ED, patient had two more episodes of seizures. During the hospital stay, today morning patient had two episodes more with 1st episode noted by the around 17 seconds where jerky movement was noted and it resolved spontaneously, her eyes were closed during the seizure. Patient had another episode of seizure noted by the nurse that lasted for around 15 seconds and 1 mg of Ativan was given. As per the nurse, patient had jerky movement and had postictal confusion. As per the patient, her seizures disorder started in 1992, and her related the seizure he witnessed was typical. The seizure was five at the beginning, but from she only had seizure wants 2-3 years. she has been taking her medication every day once in the morning and once post lunch. Before this episode also patient took her medication i.e Keppra 1000 mg b.i.d. She has never had associated oral trauma or incontinence during the seizure attacks Patient received a flu shot on Thursday. She also mentioned that she has tingling and numbness sensation which she attributed to vitamin B12 deficiency for which she was getting monthly shots but for last three weeks she is getting daily shots of vitamin B12 injection. Patient does not see a neurologist and her PCPs Dr. Hyman who manages her epilepsy. Patient denied any recent history of infection, trauma, drug use. Patient attributes stress as a trigger to her seizure episode. 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 Stroke four years ago TIA two years ago SLE Epilepsy Denies history of anxiety and depression Past surgical history No recent surgery Family history No history of seizures or any neurological condition Social history Patient used to smoke heavily but quit few years ago Patient used to drink heavily but quit few years ago Patient used to consume marijuana but quit few years ago Medication history Rinvoq Levothyroxine Leflunomide Keppra Aspirin Interval Events 05/19/25 pt seen and examined at bedside. pt is currently getting EEG. mentioned that she got seizure in the morning and resolved spontaneously. She was not given Ativan. As per the nurse, it looked like a tonic clonic seizure. As per , pt had episode where she first had jerky movements in the hand and got transferred to the whole body. as per pt had closure of her eyes during the episode. pt mentioned weakness and headache but no other complaints. Objective vital signs Vital Sign Date Time Temp Pulse Resp B/P (MAP) Pulse Ox O2 Delivery O2 Flow Rate FiO2 05/19/25 13:00 98.3 61 17 104/65 (78) 98 98.3 05/18/25 20:00 Room Air* 0 21 Total Intake and Output 05/18/25 05/18/25 05/19/25 15:00 23:00 07:00 Intake Total 0 ml Balance 0 ml medications Current Medications Medications Dose Ordered Sig/Reggie Route Start Time Stop Time Status Last Admin Dose Admin Lorazepam 1 mg Q5MINP PRN IV 05/17/25 20:30 05/18/25 11:16 1 MG Ondansetron HCl 4 mg Q4HP PRN IV 05/17/25 20:30 Acetaminophen 650 mg Q6HP PRN PO 05/17/25 20:30 05/18/25 13:56 650 MG Aspirin 81 mg DAILY PO 05/19/25 10:00 05/19/25 09:58 81 MG Atorvastatin Calcium 40 mg HS PO 05/18/25 22:00 05/18/25 23:29 40 MG Levetiracetam 100 ml @ 400 mls/hr BID IV 05/19/25 22:00 Examination: GENERAL:Normal, HEENT:Normal, LUNGS:Normal, CVS:Normal laboratory and microbiology Laboratory Tests 05/19/25 04:50 Test 05/19/25 04:50 Range/Units Serum Glucose 82 74-106 mg/dL Problem List/Assessment/Plan Problem List/Assessment/Plan Assessment # breakthrough seizures vs psychogenic seizures, possible with atypical features (according to her , she had two seizures x2 today, in that he was shaking whole-body, head was shaking from [id number], eyes were closed, for about 45 seconds), ? stress-induced, ? Autoimmune considering history of lupus and patient is on immunotherapy CT head revealed No acute territorial infarct, intracranial hemorrhage, or mass effect. # lupus, on leflunomide and Rinvoq therapy # history of neurocysticercosis # history of stroke and TIA -on aspirin # History of polysubstance use Plan/Recommendation EEG Seizure precaution Ativan p.r.n. for seizures Consider increase Keppra dose to 1500 mg b.i.d and discontinue the valproic acid Monitor daily electrolytes Ordered hepatic panel, WNL Ordered Keppra levels, Pending results Stress reduction Practice meditation, deep breathing, or yoga. Seek counseling or support groups as needed Continue aspirin and atorvastatin. Case discussion with Dr Bang. Plan discussed with: Patient, Other JAKE MCKEON RESIDENT May 19, 2025 13:53 DINA BANG MD May 19, 2025 19:11
[2025-05-19] MEDS: levETIRAcetam 1500 mg/100ml 100 ML IV SCH (21:26)
[2025-05-20 01:00] VITALS: BP 123/82; PULSE 75; RESP 19; TEMP 97.4; O2SAT 93
[2025-05-20 05:00] VITALS: BP 100/58; PULSE 64; RESP 19; TEMP 97.3; O2SAT 96
[2025-05-20 07:23] LABS: Anion Gap 9 (5-15); Carbon Dioxide 27 mmol/L (20-31); Potassium 3.8 mmol/L (3.5-5.1); Sodium 144 mmol/L (136-145)
[2025-05-20 07:24] LABS: Calcium 9.2 mg/dL (8.7-10.4)
[2025-05-20 07:29] LABS: BUN/Creatinine Ratio 10.1 (10.0-20.0); Glucose 78 mg/dL (74-106)
[2025-05-20 07:37] LABS: Blood Urea Nitrogen 8 mg/dL (9-23); Chloride 108 mmol/L (98-107)
[2025-05-20 08:00] VITALS: BP 108/77; PULSE 72; RESP 17; TEMP 97.6; O2SAT 96
[2025-05-20 13:00] VITALS: BP 111/64; PULSE 60; RESP 18; TEMP 97.6; O2SAT 97
[2025-05-20 17:00] VITALS: BP 114/73; PULSE 69; RESP 18; TEMP 97.2; O2SAT 95
[2025-05-20] MEDS ORDERED: KEP500T PO (17:36)
--- NOTE | 2025-05-20 17:39 | DVHDS2 ---
Discharge Summary Date of Admission May 17, 2025 at 19:53 Date of Discharge: May 20, 2025 Labs/Diagnostic Data: Laboratory Results Test 05/20/25 06:34 05/19/25 04:50 05/18/25 15:27 05/18/25 13:06 Sodium Level 144 mmol/L (136-145) Potassium Level 3.8 mmol/L (3.5-5.1) Chloride Level 108 mmol/L (98-107) Carbon Dioxide Level 27 mmol/L (20-31) Anion Gap 9 (5-15) Blood Urea Nitrogen 8 mg/dL (9-23) Creatinine 0.79 mg/dL (0.550-1.02) Glomerular Filtration Rate Calc 92 mL/min (>90) BUN/Creatinine Ratio 10.1 (10.0-20.0) Serum Glucose 78 mg/dL (74-106) Calcium Level 9.2 mg/dL (8.7-10.4) White Blood Count 3.9 10^3/uL (4.4-10.8) Red Blood Count 5.03 10^6/uL (4.0-5.20) Hemoglobin 12.2 g/dL (12.2-16.2) Hematocrit 37.7 % (36.0-46.0) Mean Corpuscular Volume 75.0 fL (80.0-100.0) Mean Corpuscular Hemoglobin 24.3 pg (28.0-32.0) Mean Corpuscular Hemoglobin Concent 32.4 g/dL (32.0-36.0) Red Cell Distribution Width 21.7 % (11.8-14.3) Platelet Count 230 10^3/uL (140-450) Mean Platelet Volume 8.8 fL (6.9-10.8) Neutrophils (%) (Auto) 55.1 % (37.0-80.0) Lymphocytes (%) (Auto) 34.2 % (10.0-50.0) Monocytes (%) (Auto) 7.5 % (0.0-12.0) Eosinophils (%) (Auto) 2.5 % (0.0-7.0) Basophils (%) (Auto) 0.7 % (0.0-2.0) Neutrophils # (Auto) 2.2 10 ^3/uL (1.6-8.6) Lymphocytes # (Auto) 1.3 10 ^3/uL (0.4-5.4) Monocytes # (Auto) 0.3 10 ^3/uL (0-1.3) Eosinophils # (Auto) 0.1 10 ^3/uL (0-0.8) Basophils # (Auto) 0 10 ^3/uL (0-0.2) Nucleated Red Blood Cells 0.3 % Urine Color Colorless (Yellow) Urine Clarity Turbid (Clear) Urine pH 7.0 (5.0-9.0) Urine Specific [place] 1.006 (1.001-1.035) Urine Protein Negative (Negative) Urine Ketones Negative (Negative) Urine Blood Negative /uL (Negative) Urine Nitrite Negative (Negative) Urine Bilirubin Negative (Negative) Urine Urobilinogen Normal mg/dL (Negative) Urine Leukocyte Esterase 2+ /uL (Negative) Urine RBC 1 /hpf (0 - 4) Urine Microscopic WBC 5 /HPF (0-5) Urine Squamous Epithelial Cells Few /hpf (<5) Urine Amorphous Crystals Few /hpf (None Seen) Urine Bacteria Few /hpf (None Seen) Urine Mucus Few (None Seen) Urine Glucose Normal mg/dL (Normal) Urine Opiates Screen Neg (NEGATIVE) Urine Fentanyl Screen Neg (NEGATIVE) Urine Barbiturates Screen Neg (NEGATIVE) Urine Phencyclidine Screen Neg (NEGATIVE) Urine Amphetamines Screen Neg (NEGATIVE) Urine Benzodiazepines Screen Neg (NEGATIVE) Urine Cocaine Screen Neg (NEGATIVE) Urine Cannabinoids Screen Neg (NEGATIVE) Magnesium Level 2.3 mg/dL (1.6-2.6) Total Bilirubin 0.5 mg/dL (0.2-1.0) Direct Bilirubin 0.1 mg/dL (<0.3) Aspartate Amino Transferase (AST) 38 U/L (13-40) Alanine Aminotransferase (ALT) 34 U/L (7-40) Alkaline Phosphatase 81 U/L (46-116) Total Protein 6.8 g/dL (5.7-8.2) Albumin 4.1 g/dL (3.2-4.8) Test 05/17/25 16:12 Plasma/Serum Blood Alcohol < 3.0 mg/dL (<10) Other Laboratory Tests 05/20/25 06:34 05/19/25 04:50 Brief Hx & Hospital Course: 49-year-old female with a known history of epilepsy presented to the hospital with a breakthrough seizure. Patient's does not really take Keppra at home. Patient denies any medication noncompliance. Keppra dose was increased. Patient's has a no seizures for last 24 hours. Patient does have known history of TIA as well as CVA in the past as well as lupus SLE. Patient will be discharged on Keppra 1500 mg twice a day. Patient was recommended to return to ER if there are any recurrent seizures. Please follow up with the PCP and Neurology upon discharge. Condition at Discharge: Stable Final Diagnosis/Problems List 1. Breakthrough seizures 2. Epilepsy 4. Morbid obesity class I Discharge Disposition: Home SNF Discharge Will this Physician continue t: No Discharge Instruct/Medications Diet: Cardiac 2g Na,low cholest Activity: See Comment Activity comment: No driving while on seizure medications Follow Up/Referral: Please follow up with the PCP Medications: Keppra as prescribed. New Medications: Levetiracetam (Keppra Tablet) 500 Mg Tb 1500 MG PO BID for 30 Days, #180 TAB Continued Medications: Hydrochlorothiazide (Hydrochlorothiazide) 25 Mg Tab Unknown Dose PO DAILY for 30 Days, MG Leflunomide (Arava) 20 Mg Tab 100 MG PO DAILY, TAB Levothyroxine Sodium (Levothyroxine Sodium) 112 Mcg Tab 112 MCG PO QAM for 30 Days, MCG Upadacitinib (Rinvoq) 15 Mg Tab 15 MG PO DAILY, TAB Discontinued Medications: Levetiracetam (Keppra) 1,000 Mg Tab 1 TAB PO BID, #60 TAB 5 Refills Scheduled Hydrochlorothiazide (Hydrochlorothiazide), Unknown Dose PO DAILY, (Reported) Leflunomide (Arava), 100 MG PO DAILY, (Reported) Levetiracetam (Keppra), 1 TAB PO BID, (Reported) Levetiracetam (Keppra Tablet), 1,500 MG PO BID Levothyroxine Sodium (Levothyroxine Sodium), 112 MCG PO QAM, (Reported) Upadacitinib (Rinvoq), 15 MG PO DAILY, (Reported) Discharge Statement: "Patient was advised to return to the ER or call 911 if any headaches, dizziness, shortness of breath, chest pain, abdominal pain, bleeding, fevers, or worsening of medical condition. Patient was counseled about treatment plan, medications, possible side effects, patientverbalized understanding. All questions were answered to the best of my ability. This discharge took greater then 30 minutes in planning, reviewing documentation, counseling the patient, and discussing with other team members." ASSESSMENT ASSESSMENT Assessment 1. Breakthrough seizures 2. Epilepsy 4. Morbid obesity class I Date of Service: May 20, 2025 Billing Provider: RAMILA BOYKIN MD Common Visit Codes: 85542-JGA/OBS DISCH DAY >30min RAMILA BOYKIN MD May 20, 2025 17:39
[2025-05-20 18:02] VITALS: TEMP 36.2
--- NOTE | 2025-05-22 23:43 | DVHEEG2 ---
Neurology EEG Procedural Note Procedural Note EXAM DATE: 05/19/2025 REFERRING DOCTOR: Dr. James TECHNIQUE: Eighteen channels of EEG, 2 channels of EOG, and 1 channel of EKG were recorded using the International 10/20 system. CLINICAL DATA: The patient was referred for an EEG evaluation for the evidence of seizure disorder. MEDICATIONS: See the chart BACKGROUND ACTIVITY: While the patient was awake, the background activity consisted of well regulated 8-9 Hz rhythmic waveforms, symmetrically distributed over both posterior quadrants and was reactive to eye opening. ACTIVATION: Hyperventilation: Not done Photic Stimulation: No photic convulsive response Sleep: Not seen IMPRESSION: This is a normal EEG. No focal, lateralized, or epileptiform features are noted. If clinically indicated to rule out a seizure disorder, recommend repeat EEG with sleep deprivation. The EKG channel showed a regular heart rate of 60/min[place] [address] DINA JAMES MD May 22, 2025 23:43
== END 2025-05-20 18:12 | disposition home or self-care (01) | DRG 101 ==
LOC: EDBD 15:16 → ER 15:16 → OVERFLOW 19:53 → WEST WING 05-18 21:18
PROVIDERS: ADMIT Student in an Organized Health Care Education/Training Program; ATTEND Student in an Organized Health Care Education/Training Program
DX: G40.901 Epilepsy, unspecified, not intractable, with status epilepticus (principal); I10 Essential (primary) hypertension; M32.9 Systemic lupus erythematosus, unspecified; E66.811 Obesity, class 1; E03.9 Hypothyroidism, unspecified; F17.210 Nicotine dependence, cigarettes, uncomplicated; Z68.34 Body mass index [BMI] 34.0-34.9, adult; K74.60 Unspecified cirrhosis of liver; G51.0 Bell's palsy; Z86.73 Personal history of transient ischemic attack (TIA), and cerebral infarction without residual deficits; Z90.49 Acquired absence of other specified parts of digestive tract
CPT/HCPCS: 36415; 70450; 80048; 80076; 80307; 80320; 81001; 82542; 83735; 85025; 95819; 96374; 99291; G0378